=== PATIENT | male | born 1995 | race African-American/Black ===

== ENCOUNTER 2016-12-30 17:11 | Emergency (ER) | payer OTHER ==
[~2016-12-30] VITALS: Ht 182.9 cm; Wt 80.7 kg
[2016-12-30 18:46] VITALS: BP 144/70
== END 2016-12-30 19:09 | disposition home or self-care (01) ==
LOC: ER 17:11
DX: S93.401A Sprain of unspecified ligament of right ankle, initial encounter (principal); R06.02 Shortness of breath; F12.10 Cannabis abuse, uncomplicated; X58.XXXA Exposure to other specified factors, initial encounter; Y93.89 Activity, other specified; Y99.8 Other external cause status; Y92.89 Other specified places as the place of occurrence of the external cause
CPT/HCPCS: 71020; 73610